=== PATIENT | female | born 1975 | race African-American/Black ===

== ENCOUNTER 2016-08-10 11:21 | Inpatient (IN) | payer OTHER ==
[2016-08-10 11:49] VITALS: BMI 43.2
--- NOTE | 2016-08-10 15:57 | HP ---
CIWA Score - CIWA Score Nausea/Vomitin-Int. Nausea w/Dry Heave (DIARRHEA) Muscle Tremors: 4-Moderate,w/Arms Extend Anxiety: 4-Mod. Anxious/Guarded Agitation: 4-Moderately Restless Paroxysmal Sweats: 1-Minimal Palms Moist Orientation: 0-Oriented Tacttile Disturbances: 3-Moderate Itch/Numb/Burn Auditory Disturbances: 0-None Visual Disturbances: 0-None Headache: 2-Mild CIWA-Ar Total Score: 22 Admission [facility] - HPI Chief Complaint: DETOX TX FOR ALCOHOL DEPENDENCE Allergies/Adverse Reactions: Allergies Allergy/AdvReac Type Severity Reaction Status Date / Time divalproex sodium Allergy Severe Swelling Verified 08/10/16 12:51 [From Depakote] fish derived Allergy Severe Hives Verified 08/10/16 12:51 shellfish derived Allergy Severe Hives Verified 08/10/16 12:51 No Known Drug Allergies Allergy Verified 08/10/16 12:51 peach [[place]] Allergy Swelling Verified 08/10/16 12:51 peaches Allergy Swelling Uncoded 08/10/16 12:51 History of Present Illness: 40 Y/O AA/FEMALE WITH A HX OF ALCOHOL AND COCAINE DEPENDENCE SEEKING DETOX TX. PT ALSO STATES HEROIN DEPENDENCE BUT TOXICOLOGY IS NEGATIVE FOR OPIATES THIS TIME. Exam Limitations: No Limitations - Ebola screening Have you traveled outside of the country in the last 21 days: No Have you had contact with anyone from an Ebola affected area: No Have you been sick,other than usual withdrawal symptoms: No Do you have a fever: No - Review of Systems Constitutional: Chills, Night Sweats, Changes in sleep EENT: reports: Blurred Vision, Tearing, Nose Congestion, Dental Problems Respiratory: reports: Shortness of Breath (HX ASTHMA AND COPD), Wheezing Cardiac: reports: Lightheadedness GI: reports: Diarrhea, Nausea, Vomiting, Abdominal cramping : reports: Frequency Musculoskeletal: reports: Back Pain, Joint Pain, Muscle Pain Integumentary: reports: Bruising (RIGHT HEEL) Neuro: reports: Headache, Unsteady Gait, Dizziness Endocrine: reports: No Symptoms Reported Hematology: reports: Anemia Psychiatric: reports: Orientated x3, Agitated, Anxious, Depressed (HX DEPRESSION ) Other Systems: Reviewed and Negative Patient History - Patient Medical History Hx Anemia: Yes (CURRENTLY ON IRON PILL) Hx Asthma: Yes Hx Chronic Obstructive Pulmonary Disease (COPD): Yes Hx Cardiac Disorders: No Hx Hypertension: No Hx Hypercholesterolemia: No HX Cerebrovascular Accident: No Hx Seizures: No Hx Diabetes: No Hx Gastrointestinal Disorders: No Hx Genitourinary Disorders: No Hx Sexually Transmitted Disorders: No Hx Renal Disease (ESRD): No Hx Thyroid Disease: No Hx Human Immunodeficiency Virus (HIV): No (NEGATIVE HX) Hx Hepatitis C: No Hx Depression: Yes Hx Suicide Attempt: No (DENIES) Hx Schizophrenia: Yes (schizoaffective disorder) - Patient Surgical History Past Surgical History: Yes Hx Neurologic Surgery: No Hx Cataract Extraction: No Hx Cardiac Surgery: No Hx Lung Surgery: No Hx Breast Surgery: No Hx Breast Biopsy: No Hx Abdominal Surgery: No Hx Appendectomy: Yes (IN 1989) Hx Cholecystectomy: No Hx Genitourinary Surgery: No Hx Section: No Hx Orthopedic Surgery: No Anesthesia Reaction: No - PPD History Previous Implant?: Yes Documented Results: Negative w/proof Implanted On Prior [facility] Admission?: Yes Date: 10/30/13 Results: 0 mm PPD to be Administered?: Yes - Reproductive History Patient is a Female of Child Bearing Age (11 -55 yrs old): Yes Last Menstrual Period: 07/20/16 Patient : No - Smoking Cessation Smoking history: Current every day smoker Have you smoked in the past 12 months: Yes Aproximately how many cigarettes per day: 2 Cigars Per Day: 0 Hx Chewing Tobacco Use: No Initiated information on smoking cessation: Yes 'Breaking Loose' booklet given: 08/10/16 - Substance & Tx. History Hx Alcohol Use: Yes (RUM/VODKA) Hx Substance Use: Yes (HEROIN/CRACK/PCP) Substance Use Type: Alcohol, Cocaine, Heroin, Marijuana (PCP) Hx Substance Use Treatment: Yes ([facility]-DETOX/REHAB) - Substances Abused Heroin Route: Inhalation Frequency: Daily Amount used: 10 bags Age of first use: 27 Date of Last Use: 08/10/16 Crack Route: Smoking Frequency: 1-3 times last 30 days Amount used: $200 Age of first use: 27 Date of Last Use: 08/10/16 PCP Route: Smoking Frequency: 1-3 times last 30 days Amount used: $10 Age of first use: 38 Date of Last Use: 08/09/16 Alcohol-rum/vodka Route: Oral Frequency: 3-6 times per week Amount used: 1/2-1 pt. Age of first use: 19 Date of Last Use: 08/10/16 Family Disease History - Family Disease History Family Disease History: Other: Mother (HTN-) Admission Physical Exam [facility] - Vital Signs Vital Signs: Vital Signs - 24 hr 08/10/16 11:47 Temperature 98.8 F Pulse Rate 115 H Respiratory 18 Rate Blood Pressure 140/87 - Physical General Appearance: Yes: Moderate Distress, Obese, Irritable, Anxious HEENTM: Yes: EOMI, Normocephalic, RAFI, Pharynx Normal Respiratory: Yes: Chest Non-Tender, Lungs Clear, Normal Breath Sounds, No Respiratory Distress Neck: Yes: Supple, Trachea in good position Breast: Yes: Breast Exam Deferred Cardiology: Yes: Regular Rhythm, S1, S2, Tachycardia Abdominal: Yes: Non Tender, Soft Genitourinary: Yes: Other (N/C) Musculoskeletal: Yes: full range of Motion, Gait Steady Extremities: Yes: Normal Range of Motion, Non-Tender Neurological: Yes: director media II-XII NML intact, Fully Oriented, Alert Integumentary: Yes: Dry, Warm Lymphatic: Yes: Within Normal Limits - Diagnostic (1) Asthma Status: Chronic (2) Anemia Status: Suspected Qualifiers: Iron deficiency anemia type: unspecified iron deficiency (3) Nicotine dependence Status: Acute Qualifiers: Nicotine product type: cigarettes Substance use status: uncomplicated Qualified Code(s): F17.210 - Nicotine dependence, cigarettes, uncomplicated (4) Alcohol dependence with uncomplicated withdrawal Status: Acute (5) PCP dependence Status: Acute (6) Cocaine dependence, uncomplicated Status: Acute (7) COPD (chronic obstructive pulmonary disease) Status: Chronic Qualifiers: COPD type: unspecified COPD Qualified Code(s): J44.9 - Chronic obstructive pulmonary disease, unspecified Cleared for Admission [facility] - Detox or Rehab S Level of Care: Medically Managed Detox Regimen/Protocol: Librium [facility] Breath Alcohol Content Breath Alcohol Content: 0 Urine Pregancy Test - Result Urine Test Results: Negative- NO Line Present Urine Drug Screen - Results Drug Screen Negative: No Urine Drug Screen Results: RUDY-Cocaine, PCP-Phencyclidine
[2016-08-10] MEDS ORDERED: MENTHOL/PHENOL 1 EACH UD MM PRN (16:13)
[2016-08-10] MEDS ORDERED: hydrOXYzine PAMOATE 25 MG CAPSULE (FP) PO PRN (16:13)
[2016-08-10] MEDS ORDERED: MAGNESIUM CITRATE 300 ML BOTTLE PO PRN (16:13)
[2016-08-10] MEDS ORDERED: guaiFENesin/D-METHORPHAN HB 10 ML UNIT-DOSE CUPS PO PRN (16:13)
[2016-08-10] MEDS ORDERED: LOPERAMIDE HCL 2 MG CAPSULE PO PRN (16:13)
[2016-08-10] MEDS ORDERED: P-EPHED 60MG/TRIPROLIDI 2.5MG TABLET PO PRN (16:13)
[2016-08-10] MEDS ORDERED: MAG HYDROX/AL HYDROX/SIMETH 30 ML UNIT-DOSE CUP PO PRN (16:13)
[2016-08-10] MEDS ORDERED: ACETAMINOPHEN 325 MG TABLET (FP) PO PRN (16:13)
[2016-08-10] MEDS ORDERED: chlordiazePOXIDE HCL 25 MG CAPSULE PO PRN (16:13)
[2016-08-10] MEDS ORDERED: MAGNESIUM HYDROX 2400MG/30ML ORAL SUSPENSION 30 ML CUP PO PRN (16:13)
[2016-08-10] MEDS ORDERED: ALBUTEROL SO4 6.7 GM HFA INHALER IH PRN (16:15)
[2016-08-10] MEDS: NICOTINE 14 MG/24 HOURS TOPICAL PATCH TD SCH (17:50)
[2016-08-10] MEDS: chlordiazePOXIDE HCL 25 MG CAPSULE PO SCH ×2 (17:50→23:07)
[2016-08-10] MEDS: IBUPROFEN 400 MG TABLET (FP) PO PRN (17:53)
[2016-08-10 21:52] LABS: URINE APPEARANCE CLOUDY; URINE BILIRUBIN NEGATIVE (NEGATIVE); URINE COLOR YELLOW; URINE GLUCOSE (UA) NEGATIVE (NEGATIVE); URINE KETONE 1+ (NEGATIVE); URINE LEUK ESTERASE NEGATIVE (NEGATIVE); URINE NITRITE NEGATIVE (NEGATIVE); URINE UROBILINOGEN NEGATIVE E.U./dl (0.2-1.0)
[2016-08-10 21:55] LABS: URINE BLOOD 2+ (NEGATIVE); URINE PROTEIN 1+ (NEGATIVE)
[2016-08-10 21:58] LABS: URINE BACTERIA RARE /hpf (NONE SEEN); URINE MUCUS MODERATE; URINE RBC 4 /hpf (0-3); URINE WBC 8 /hpf (3-5)
[2016-08-10] MEDS ORDERED: diphenhydrAMINE HCL 50 MG CAPSULE PO PRN (22:00)
[2016-08-10] MEDS: MONTELUKAST NA 10 MG TABLET PO SCH (23:06)
[2016-08-10] MEDS: THIAMINE HCL 100 MG TABLET (FP) PO SCH (23:07)
[2016-08-11] MEDS: chlordiazePOXIDE HCL 25 MG CAPSULE PO SCH ×4 (06:21→22:40)
--- NOTE | 2016-08-11 08:30 | CONSULT ---
[facility] Psychiatric Consult - Data Date of interview: 08/11/16 Admission source: [facility] Identifying data: This is 40 years old female with psychiatric hospitalization history, intoxicated with Alcohol, Crack, PCP, Heroin, Nicotine Substance Abuse History: Smoking history: Current every day smoker. Have you smoked in the past 12 months: Yes. Aproximately how many cigarettes per day: 2. Cigars Per Day: 0. Hx Chewing Tobacco Use: No. Initiated information on smoking cessation: Yes. 'Breaking Loose' booklet given: 08/10/16. - Substance & Tx. History. Hx Alcohol Use: Yes (RUM/VODKA). Hx Substance Use: Yes (HEROIN/ CRACK/PCP). Substance Use Type: Alcohol, Cocaine, Heroin, Marijuana (PCP). Hx Substance Use Treatment: Yes ([facility]-DETOX/REHAB). - Substances Abused. Heroin. Route: Inhalation. Frequency: Daily. Amount used: 10 bags. Age of first use: 27. Date of Last Use: 08/10/16. Crack. Route: Smoking. Frequency: 1-3 times last 30 days. Amount used: $200. Age of first use: 27. Date of Last Use: 08/10/16. PCP. Route: Smoking. Frequency: 1-3 times last 30 days. Amount used: $10. Age of first use: 38. Date of Last Use: 08/09. Alcohol-rum/vodka. Route: Oral. Frequency: 3-6 times per week. Amount used: 1/2-1 pt. Age of first use: 19. Date of Last Use: 08/10/16 Medical History: Asthma, COPD, Anemia history, Syncope history, Psychiatric History: Patient reports hiswtory of anxiety and depression, OCD, reports psychiatric admission on about 5 years ago for safety, denies suicidal history, reports currently taking : Buspar 10mg po bid. Gabapentin 300mg po tid Physical/Sexual Abuse/Trauma History: Denies Additional Comment: Buspar 10mg po bid. Gabapentin 300mg po tid Mental Status Exam - Mental Status Exam Alert and Oriented to: Person Cognitive Function: Fair Patient Appearance: Well Groomed Mood: Sad Affect: Mood Congruent Patient Behavior: Cooperative Speech Pattern: Appropriate Voice Loudness: Mildly Soft/Quiet Thought Process: Goal Oriented Thought Disorder: Being Controlled Hallucinations: Denies Suicidal Ideation: Denies Homicidal Ideation: Denies Insight/Judgement: Fair Sleep: Difficulty falling asleep Appetite: Fair Muscle strength/Tone: Normal Gait/Station: Normal Additional Comments: Buspar 10mg po bid. Gabapentin 300mg po tid Psychiatric Findings - Problem List ([employer] 1, 2,3) (1) Alcohol dependence with uncomplicated withdrawal Current Visit: Yes Status: Acute (2) Cocaine dependence, uncomplicated Current Visit: Yes Status: Acute (3) Nicotine dependence Current Visit: Yes Status: Acute Qualifiers: Nicotine product type: cigarettes Substance use status: uncomplicated Qualified Code(s): F17.210 - Nicotine dependence, cigarettes, uncomplicated (4) PCP dependence Current Visit: Yes Status: Acute (5) Alcohol dependence Current Visit: No Status: Acute (6) Drug-induced mood disorder Current Visit: Yes Status: Acute (7) History of OCD (obsessive compulsive disorder) Current Visit: Yes Status: Acute - Initial Treatment Plan Initial Treatment Plan: Buspar 10mg po bid. Gabapentin 300mg po tid
[2016-08-11 09:33] LABS: MCH 25.1 pg (25.7-33.7); MCHC 31.2 g/dl (32.0-36.0); MEAN CELL VOLUME 80.5 fl (80-96); MEAN PLT VOLUME 9.3 fl (7.5-11.1); PLATELET COUNT 265 K/MM3 (134-434); RDW 15.9 % (11.6-15.6); WHITE BLOOD COUNT 10.1 K/mm3 (4.0-10.0)
[2016-08-11 09:47] LABS: ANION GAP 10 (8-16); CALCIUM 9.1 mg/dL (8.5-10.1); CO2 26 mmol/L (21-32); GLUCOSE,RANDOM 109 mg/dL (74-106)
[2016-08-11 09:51] LABS: ALK PHOS 94 U/L (45-117); BILIRUBIN,TOTAL 0.2 mg/dL (0.2-1.0); CREATININE 0.9 mg/dL (0.55-1.02); SGOT/AST 43 U/L (15-37); SGPT/ALT 30 U/L (12-78); TOT PROT 7.9 g/dl (6.4-8.2)
--- NOTE | 2016-08-11 10:39 | EKG ---
Test Reason : Blood Pressure : / mmHG Vent. Rate : 094 BPM Atrial Rate : 094 BPM P-R Int : 148 ms QRS Dur : 082 ms QT Int : 404 ms P-R-T Axes : 073 058 069 degrees QTc Int : 505 ms NORMAL SINUS RHYTHM PROLONGED QT ABNORMAL ECG NO PREVIOUS ECGS AVAILABLE Confirmed by MEGA OCASIO, FLORA ([id number]) on 08/11/2016 10:38:53 AM Referred By: Confirmed By:FLORA AYOUB MD
[2016-08-11] MEDS: PRENATAL VITAMINS W/ FOLIC ACID TABLET (FP) PO SCH (11:15)
[2016-08-11] MEDS: NICOTINE POLACRILEX 2 MG GUM BUC PRN (11:18)
[2016-08-11] MEDS: IBUPROFEN 400 MG TABLET (FP) PO PRN (11:18)
[2016-08-11] MEDS: NICOTINE 14 MG/24 HOURS TOPICAL PATCH TD SCH (11:20)
[2016-08-11 12:09] LABS: HIV 1 & 2 AB NEGATIVE; HIV 1 AGp24 NEGATIVE
[2016-08-11] MEDS ORDERED: IBUPROFEN 600 MG TABLET (FP) PO PRN (13:49)
--- NOTE | 2016-08-11 13:49 | PN ---
[facility] CIWA - CIWA Score Nausea/Vomitin-No Nausea/No Vomiting Muscle Tremors: 4-Moderate,w/Arms Extend Anxiety: 4-Mod. Anxious/Guarded Agitation: 4-Moderately Restless Paroxysmal Sweats: 3 Orientation: 0-Oriented Tacttile Disturbances: 0-None Auditory Disturbances: 0-None Visual Disturbances: 0-None Headache: 0-None Present CIWA-Ar Total Score: 15 [facility] Progress Note (SOAP) Subjective: coughing up phlem with blood tinged sweats agitation irritable body aches Objective: 08/11/16 13:47 Vital Signs Temperature 99.0 F 08/11/16 10:17 Pulse Rate 101 H 08/11/16 10:17 Respiratory Rate 16 08/11/16 10:17 Blood Pressure 101/58 08/11/16 10:17 O2 Sat by Pulse Oximetry (%) Laboratory Tests 08/10/16 08/10/16 08/11/16 06:30 20:30 05:30 WBC 10.1 H RBC 5.08 Hgb 12.7 Hct 40.9 MCV 80.5 MCHC 31.2 L RDW 15.9 H Plt Count 265 MPV 9.3 Sodium Potassium Chloride Carbon Dioxide Anion Gap BUN Creatinine Creat Clearance w eGFR Random Glucose Calcium Total Bilirubin AST ALT Alkaline Phosphatase Total Protein Albumin Urine Color Yellow Urine Appearance Cloudy Urine pH 5.0 Ur Specific [place] 1.015 Urine Protein 1+ H Urine Glucose (UA) Negative Urine Ketones 1+ H Urine Blood 2+ H Urine Nitrite Negative Urine Bilirubin Negative Urine Urobilinogen Negative Ur Leukocyte Esterase Negative Urine RBC 4 Urine WBC 8 Ur Epithelial Cells Few Urine Bacteria Rare Urine Mucus Moderate HIV 1&2 Antibody Screen Negative HIV P24 Antigen Negative 08/11/16 05:30 WBC RBC Hgb Hct MCV MCHC RDW Plt Count MPV Sodium 139 Potassium 3.8 Chloride 103 Carbon Dioxide 26 Anion Gap 10 BUN 8 Creatinine 0.9 Creat Clearance w eGFR > 60 Random Glucose 109 H Calcium 9.1 Total Bilirubin 0.2 D AST 43 H D ALT 30 D Alkaline Phosphatase 94 D Total Protein 7.9 D Albumin 4.0 Urine Color Urine Appearance Urine pH Ur Specific [place] Urine Protein Urine Glucose (UA) Urine Ketones Urine Blood Urine Nitrite Urine Bilirubin Urine Urobilinogen Ur Leukocyte Esterase Urine RBC Urine WBC Ur Epithelial Cells Urine Bacteria Urine Mucus HIV 1&2 Antibody Screen HIV P24 Antigen chest x-ray ordered; results show lungs to be unremarkable no s/s of any abnormality awake/alert ambulating no acute distress no SOB no respiratory distress, Assessment: 08/11/16 13:48 withdrawal sx Plan: continue detox increase fluids duoneb prn robutussin cough medicine ordered throat lozenges prn
[2016-08-11] MEDS ORDERED: ALBUTEROL SO4 2.5/IPRATROPIUM 0.5 INH SOL 3 ML VIAL.NEB. NEB PRN (13:51)
[2016-08-11] MEDS ORDERED: ALBUTEROL SO4 2.5/IPRATROPIUM 0.5 INH SOL 3 ML VIAL.NEB. NEB ONE (14:08)
[2016-08-11] MEDS: GABAPENTIN 300 MG CAPSULE (FP) PO SCH ×2 (15:20→22:40)
[2016-08-11] MEDS: THIAMINE HCL 100 MG TABLET (FP) PO SCH (22:40)
[2016-08-11] MEDS: MONTELUKAST NA 10 MG TABLET PO SCH (22:40)
[2016-08-12] MEDS: GABAPENTIN 300 MG CAPSULE (FP) PO SCH ×3 (07:26→23:43)
[2016-08-12] MEDS: chlordiazePOXIDE HCL 25 MG CAPSULE PO SCH ×2 (07:31→10:55)
[2016-08-12] MEDS: NICOTINE 14 MG/24 HOURS TOPICAL PATCH TD SCH (10:51)
[2016-08-12] MEDS: PRENATAL VITAMINS W/ FOLIC ACID TABLET (FP) PO SCH (10:52)
--- NOTE | 2016-08-12 11:28 | PN ---
[facility] CIWA - CIWA Score Nausea/Vomitin-No Nausea/No Vomiting Muscle Tremors: 4-Moderate,w/Arms Extend Anxiety: 4-Mod. Anxious/Guarded Agitation: 4-Moderately Restless Paroxysmal Sweats: 3 Orientation: 0-Oriented Tacttile Disturbances: 0-None Auditory Disturbances: 0-None Visual Disturbances: 0-None Headache: 0-None Present CIWA-Ar Total Score: 15 [facility] Progress Note (SOAP) Subjective: irritable crying sweats agitation Objective: 08/12/16 11:25 Vital Signs Temperature 98.2 F 08/12/16 10:34 Pulse Rate 103 H 08/12/16 10:34 Respiratory Rate 20 08/12/16 10:34 Blood Pressure 125/70 08/12/16 10:34 O2 Sat by Pulse Oximetry (%) Laboratory Tests 08/10/16 08/10/16 08/11/16 06:30 20:30 05:30 WBC 10.1 H RBC 5.08 Hgb 12.7 Hct 40.9 MCV 80.5 MCHC 31.2 L RDW 15.9 H Plt Count 265 MPV 9.3 Sodium Potassium Chloride Carbon Dioxide Anion Gap BUN Creatinine Creat Clearance w eGFR Random Glucose Calcium Total Bilirubin AST ALT Alkaline Phosphatase Total Protein Albumin Urine Color Yellow Urine Appearance Cloudy Urine pH 5.0 Ur Specific [place] 1.015 Urine Protein 1+ H Urine Glucose (UA) Negative Urine Ketones 1+ H Urine Blood 2+ H Urine Nitrite Negative Urine Bilirubin Negative Urine Urobilinogen Negative Ur Leukocyte Esterase Negative Urine RBC 4 Urine WBC 8 Ur Epithelial Cells Few Urine Bacteria Rare Urine Mucus Moderate RPR Titer HIV 1&2 Antibody Screen Negative HIV P24 Antigen Negative 08/11/16 08/11/16 05:30 05:30 WBC RBC Hgb Hct MCV MCHC RDW Plt Count MPV Sodium 139 Potassium 3.8 Chloride 103 Carbon Dioxide 26 Anion Gap 10 BUN 8 Creatinine 0.9 Creat Clearance w eGFR > 60 Random Glucose 109 H Calcium 9.1 Total Bilirubin 0.2 D AST 43 H D ALT 30 D Alkaline Phosphatase 94 D Total Protein 7.9 D Albumin 4.0 Urine Color Urine Appearance Urine pH Ur Specific [place] Urine Protein Urine Glucose (UA) Urine Ketones Urine Blood Urine Nitrite Urine Bilirubin Urine Urobilinogen Ur Leukocyte Esterase Urine RBC Urine WBC Ur Epithelial Cells Urine Bacteria Urine Mucus RPR Titer Nonreactive HIV 1&2 Antibody Screen HIV P24 Antigen awake/alert ambulating pt was crying uncontrollably psych ordered Assessment: 08/12/16 11:26 withdrawal sx Plan: continue detox increase fluids psych ordered
[2016-08-12] MEDS: cloNIDine HCL 0.1 MG TABLET PO SCH ×2 (12:03→23:42)
--- NOTE | 2016-08-12 12:40 | PN ---
Psychiatric Progress Note Vital Signs: Vital Signs Period Temp Pulse Resp BP Sys/Begum Pulse Ox Last 24 Hr 97.2 F-98.2 F 77-103 16-20 106-125/61-70 Date of Session: 08/12/16 Chief Complaint:: Follow up visit HPI: Case of a 40 y/o AA female seeking detox treatment on for alcohol, heroin,phencyclidine and nicotine dependence.Psychiatric consultation is sought in view of escalating anxiety symptoms,depressed/angry mood,crying spells and request for discharge. ROS: Unremarkable.No somatic complaints offered.No evidence of physical distress.Patient is cognitively intact.Normal vitals. Current Medications: Active Medications Generic Name Dose Route Start Last Admin Trade Name Freq PRN Reason Stop Dose Admin Acetaminophen 650 mg 08/10/16 16:13 Tylenol - PO Q4H PRN FEVER OR PAIN Al Hydroxide/Mg Hydroxide 30 ml 08/10/16 16:13 Mylanta Oral Suspension - PO Q6H PRN DYSPEPSIA Albuterol Sulfate 0 puff 08/10/16 16:15 Ventolin Hfa Inhaler - IH Q4H PRN ASTHMA Albuterol/Ipratropium 1 amp 08/11/16 13:51 08/12/16 10:55 Duoneb - NEB 1 amp Q4H PRN Administration SHORTNESS OF BREATH Chlordiazepoxide HCl 10 mg 08/13/16 17:00 Librium - PO 08/14/16 11:01 [id number] ALEXX Chlordiazepoxide HCl 25 mg 08/10/16 16:13 08/12/16 12:28 Librium - PO 08/13/16 16:12 25 mg Q4H PRN Administration WITHDRAWAL(CONT SUBST) Chlordiazepoxide HCl 15 mg 08/12/16 17:00 Librium - PO 08/13/16 11:01 [id number] ALEXX Clonidine 0.1 mg 08/12/16 11:30 08/12/16 12:03 Catapres - PO 0.1 mg BID ALEXX Administration Diphenhydramine HCl 50 mg 08/10/16 22:00 Benadryl - PO HSMR1 PRN INSOMNIA Eucalyptus/Menthol/Phenol/Sorbitol 1 each 08/10/16 16:13 Cepastat Lozenge - MM Q4H PRN SORE THROAT Gabapentin 300 mg 08/11/16 14:00 08/12/16 07:26 Neurontin - PO 300 mg TID ALEXX Administration Guaifenesin 10 ml 08/10/16 16:13 08/12/16 12:26 Robitussin Dm - PO 10 ml Q6H PRN Administration COUGH Hydroxyzine Pamoate 25 mg 08/10/16 16:13 08/12/16 12:31 Vistaril - PO 25 mg Q4H PRN Administration AGITATION Ibuprofen 600 mg 08/11/16 13:49 Motrin - PO Q6H PRN SEVERE PAIN Loperamide HCl 4 mg 08/10/16 16:13 Imodium - PO Q6H PRN DIARRHEA Magnesium Citrate 300 ml 08/10/16 16:13 Citroma - PO Q48H PRN CONSTIPATION Magnesium Hydroxide 30 ml 08/10/16 16:13 Milk Of Magnesia - PO DAILY PRN CONSTIPATION Montelukast Sodium 10 mg 08/10/16 22:00 08/11/16 22:40 Singulair - PO 10 mg HS ALEXX Administration Nicotine 14 mg 08/10/16 16:15 08/12/16 10:51 Nicoderm Patch - TD Not Given DAILY ALEXX Nicotine Polacrilex 2 mg 08/10/16 16:13 08/11/16 11:18 Nicorette Gum - BUC 2 mg Q2H PRN Administration NICOTINE REPLACEMENT RX Multivit/Folic Acid/Iron 1 tab 08/11/16 10:00 08/12/16 10:52 Vitamins (Sjr) - PO Not Given DAILY ALEXX Pseudoephedrine/Triprolidine 1 combo 08/10/16 16:13 Actifed - PO TID PRN NASAL CONGESTION Thiamine HCl 100 mg 08/10/16 22:00 08/11/16 22:40 Vitamin B1 - PO 100 mg HS ALEXX Administration Medication(s) Change(s): Vistaril is offered for alleviation of anxiety.Patient refused." I have been on so many medications all my life.Now what I need is to see my and get custody of my one year-old daughter." Vistaril 25 mg po q 4 hrs prn is available to address acute anxiety symptoms.Side effects/benefits discussed with the patient. Current Side Effect: No Lab tests ordered: No Lab tests reviewed: Yes Provider note:: Asked to see this patient (already evaluated by psychiatrist,Dr Dumont,on 08/11/16) because of emotional lability,anxiety,dysphoric mood, restlessness and acting out behavior.Chart reviewed.Case presented by TESFAYE Nolan.Attending psychiatrist's note is appreciated.Patient is interviewed.She reports feeling upset over her current situation (marital discord,frequent arguments with spouse,recent involvement with [facility],separation from ).Patient informs that her one year-old stepdaughter has been taken away three weeks ago.Ms Carter is unhappy about this separation and she indicates her intention to petition for child custody.Patient remains calm and appropriate during the interview.She shows no evidence of psychosis or alla.Patient is allowed to contact spouse via telephone.She showed a natural ability to negotiate,revisit her own weaknesses and make amends.Conversation is witnessed by this science writer.No acting out.Ms Carter informs spouse of her scheduled discharge on 08/14/16 and she is making arrangements for a family reunion.Mental status remains stable. Total face to face time:: 90 Mental Status Exam - Mental Status Exam Alert and Oriented to: Time, Place, Person Cognitive Function: Good Patient Appearance: Well Groomed (short stature,obese) Mood: Nervous, Anxious, Hopeful Affect: Mood Congruent Patient Behavior: Talkative, Cooperative Speech Pattern: Clear Voice Loudness: Normal Thought Process: Goal Oriented Thought Disorder: Not Present Hallucinations: Denies Suicidal Ideation: Denies Homicidal Ideation: Denies Insight/Judgement: Fair Sleep: Fair Appetite: Good Muscle strength/Tone: Normal Gait/Station: Normal Psychiatric Treatment Plan - Problem List (1) Stress disorder, acute Current Visit: Yes (2) Alcohol dependence with uncomplicated withdrawal Current Visit: Yes (3) Cocaine dependence, uncomplicated Current Visit: Yes (4) Drug-induced mood disorder Current Visit: Yes (5) Nicotine dependence Current Visit: Yes Qualifiers: Nicotine product type: cigarettes Substance use status: uncomplicated Qualified Code(s): F17.210 - Nicotine dependence, cigarettes, uncomplicated (6) PCP dependence Current Visit: Yes (7) History of OCD (obsessive compulsive disorder) Current Visit: Yes (8) Asthma Current Visit: Yes (9) COPD (chronic obstructive pulmonary disease) Current Visit: Yes Qualifiers: COPD type: unspecified COPD Qualified Code(s): J44.9 - Chronic obstructive pulmonary disease, unspecified (10) Anemia Current Visit: Yes
[2016-08-12] MEDS: chlordiazePOXIDE 5 MG CAPSULE PO SCH ×2 (20:15→23:42)
[2016-08-12] MEDS: MONTELUKAST NA 10 MG TABLET PO SCH (23:43)
[2016-08-12] MEDS: THIAMINE HCL 100 MG TABLET (FP) PO SCH (23:43)
[2016-08-13] MEDS: chlordiazePOXIDE 5 MG CAPSULE PO SCH ×2 (06:20→10:01)
[2016-08-13] MEDS: GABAPENTIN 300 MG CAPSULE (FP) PO SCH ×2 (06:20→13:47)
[2016-08-13] MEDS: PRENATAL VITAMINS W/ FOLIC ACID TABLET (FP) PO SCH (10:00)
[2016-08-13] MEDS: cloNIDine HCL 0.1 MG TABLET PO SCH (10:00)
[2016-08-13] MEDS: NICOTINE POLACRILEX 2 MG GUM BUC PRN (10:02)
[2016-08-13] MEDS: NICOTINE 14 MG/24 HOURS TOPICAL PATCH TD SCH (10:03)
--- NOTE | 2016-08-13 12:08 | PN ---
S Progress Note (SOAP) Subjective: ALERT,IRRITABLE,ANXIOUS,INTERRUPTED SLEEP,TREMOR Objective: 08/13/16 12:07 Vital Signs Temperature 97.5 F L 08/13/16 09:42 Pulse Rate 85 08/13/16 09:42 Respiratory Rate 18 08/13/16 09:42 Blood Pressure 108/61 08/13/16 09:42 O2 Sat by Pulse Oximetry (%) Assessment: 08/13/16 12:07 WITHDRAWAL SYMPTOM Plan: CONTINUE DETOX,DISCHARGE IN AM
[2016-08-13] MEDS ORDERED: chlordiazePOXIDE HCL 10 MG CAPSULE PO SCH (17:00)
[2016-08-13 17:52] VITALS: BP 107/44; PULSE 82; TEMP 99
--- NOTE | 2016-08-13 18:40 | DS ---
[facility] Detox Discharge Summary Admission Date: 08/10/16 Discharge Date: 08/13/16 - History Present History: Alcohol Dependence, Cocaine Dependence Pertinent Past History: COPD Asthma - Physical Exam Results Vital Signs: Vital Signs Temperature 99.0 F 08/13/16 17:52 Pulse Rate 82 08/13/16 17:52 Respiratory Rate 16 08/13/16 17:52 Blood Pressure 107/44 08/13/16 17:52 O2 Sat by Pulse Oximetry (%) Pertinent Admission Physical Exam Findings: withdrawal sx. Laboratory Last Values WBC 10.1 K/mm3 (4.0-10.0) H 08/11/16 05:30 RBC 5.08 M/mm3 (3.60-5.2) 08/11/16 05:30 Hgb 12.7 GM/dL (10.7-15.3) 08/11/16 05:30 Hct 40.9 % (32.4-45.2) 08/11/16 05:30 MCV 80.5 fl (80-96) 08/11/16 05:30 MCHC 31.2 g/dl (32.0-36.0) L 08/11/16 05:30 RDW 15.9 % (11.6-15.6) H 08/11/16 05:30 Plt Count 265 K/MM3 (134-434) 08/11/16 05:30 MPV 9.3 fl (7.5-11.1) 08/11/16 05:30 Sodium 139 mmol/L (136-145) 08/11/16 05:30 Potassium 3.8 mmol/L (3.5-5.1) 08/11/16 05:30 Chloride 103 mmol/L (98-107) 08/11/16 05:30 Carbon Dioxide 26 mmol/L (21-32) 08/11/16 05:30 Anion Gap 10 (8-16) 08/11/16 05:30 BUN 8 mg/dL (7-18) 08/11/16 05:30 Creatinine 0.9 mg/dL (0.55-1.02) 08/11/16 05:30 Creat Clearance w eGFR > 60 (>60) 08/11/16 05:30 Random Glucose 109 mg/dL (74-106) H 08/11/16 05:30 Calcium 9.1 mg/dL (8.5-10.1) 08/11/16 05:30 Total Bilirubin 0.2 mg/dL (0.2-1.0) D 08/11/16 05:30 AST 43 U/L (15-37) H D 08/11/16 05:30 ALT 30 U/L (12-78) D 08/11/16 05:30 Alkaline Phosphatase 94 U/L (45-117) D 08/11/16 05:30 Total Protein 7.9 g/dl (6.4-8.2) D 08/11/16 05:30 Albumin 4.0 g/dl (3.4-5.0) 08/11/16 05:30 Urine Color Yellow 08/10/16 20:30 Urine Appearance Cloudy 08/10/16 20:30 Urine pH 5.0 (5.0-8.0) 08/10/16 20:30 Ur Specific [place] 1.015 (1.001-1.035) 08/10/16 20:30 Urine Protein 1+ (NEGATIVE) H 08/10/16 20:30 Urine Glucose (UA) Negative (NEGATIVE) 08/10/16 20:30 Urine Ketones 1+ (NEGATIVE) H 08/10/16 20:30 Urine Blood 2+ (NEGATIVE) H 08/10/16 20:30 Urine Nitrite Negative (NEGATIVE) 08/10/16 20:30 Urine Bilirubin Negative (NEGATIVE) 08/10/16 20:30 Urine Urobilinogen Negative E.U./dl (0.2-1.0) 08/10/16 20:30 Ur Leukocyte Esterase Negative (NEGATIVE) 08/10/16 20:30 Urine RBC 4 /hpf (0-3) 08/10/16 20:30 Urine WBC 8 /hpf (3-5) 08/10/16 20:30 Ur Epithelial Cells Few /hpf (FEW) 08/10/16 20:30 Urine Bacteria Rare /hpf (NONE SEEN) 08/10/16 20:30 Urine Mucus Moderate 08/10/16 20:30 RPR Titer Nonreactive (NONREACTIVE) 08/11/16 05:30 HIV 1&2 Antibody Screen Negative 08/10/16 06:30 HIV P24 Antigen Negative 08/10/16 06:30 labs noted - Treatment Hospital Course: Detox Protocol Followed, Detoxed Safely, Responded well, Discharged Condition Good, Rehab Referral Accepted - Medication Discharge Medications: Ambulatory Orders Albuterol Sulfate Inhaler - [Ventolin Hfa *Inhaler*] 2 inh IH Q4H PRN 08/27/12 Montelukast Na [Singulair] 10 mg PO HS 08/27/12 Gabapentin [Neurontin] 300 mg PO TID 06/14/13 Buspirone HCl [Buspar -] 10 mg PO BID 08/10/16 Ibuprofen [Motrin -] 400 mg PO BID PRN 08/10/16 - Diagnosis (1) Alcohol dependence with uncomplicated withdrawal Current Visit: Yes Status: Acute (2) Cocaine dependence, uncomplicated Current Visit: Yes Status: Acute (3) Drug-induced mood disorder Current Visit: Yes Status: Acute (4) History of OCD (obsessive compulsive disorder) Current Visit: Yes Status: Acute (5) Nicotine dependence Current Visit: Yes Status: Acute Qualifiers: Nicotine product type: cigarettes Substance use status: uncomplicated Qualified Code(s): F17.210 - Nicotine dependence, cigarettes, uncomplicated (6) Asthma Current Visit: Yes Status: Chronic (7) COPD (chronic obstructive pulmonary disease) Current Visit: Yes Status: Chronic Qualifiers: COPD type: unspecified COPD Qualified Code(s): J44.9 - Chronic obstructive pulmonary disease, unspecified - AMA Did Patient Leave Against Medical Advice: No
== END 2016-08-13 18:10 | disposition home or self-care (01) | DRG 774 ==
LOC: YASAS 11:21 → Y6N 14:37
PROVIDERS: ADMIT Internal Medicine; ATTEND Internal Medicine
PROC: HZ2ZZZZ Detoxification Services for Substance Abuse Treatment (ICD-10-PCS; principal; 2016-08-13)
DX: F16.20 Hallucinogen dependence, uncomplicated (principal); F14.20 Cocaine dependence, uncomplicated; F17.210 Nicotine dependence, cigarettes, uncomplicated; F19.24 Other psychoactive substance dependence with psychoactive substance-induced mood disorder; F42.9 Obsessive-compulsive disorder, unspecified; J44.9 Chronic obstructive pulmonary disease, unspecified; J45.909 Unspecified asthma, uncomplicated
CPT/HCPCS: 36415; 71020-TC; 80053; 81003; 81015; 85027; 86593; 87389; 93005; 93010; 94640

== ENCOUNTER 2018-02-05 16:58 | Inpatient (IN) | payer OTHER ==
[2018-02-05 18:26] VITALS: BMI 34.1
--- NOTE | 2018-02-05 21:02 | HP ---
CIWA Score - CIWA Score Nausea/Vomitin Muscle Tremors: 3 Anxiety: 3 Agitation: 3 Paroxysmal Sweats: 2 Orientation: 1-Uncertain about Date (no distress) Tacttile Disturbances: 1-Very Mild Itch/Numbness Auditory Disturbances: 0-None Visual Disturbances: 0-None Headache: 2-Mild CIWA-Ar Total Score: 18 Admission ROS S - HPI Chief Complaint: alcohol withdrawal symptoms Allergies/Adverse Reactions: Allergies Allergy/AdvReac Type Severity Reaction Status Date / Time divalproex sodium Allergy Severe Swelling Verified 02/05/18 20:37 [From Depakote] fish derived Allergy Severe Hives Verified 02/05/18 20:37 shellfish derived Allergy Severe Hives Verified 02/05/18 20:37 No Known Drug Allergies Allergy Verified 02/05/18 20:37 peach [[place]] Allergy Swelling Verified 02/05/18 20:37 peaches Allergy Swelling Uncoded 08/10/16 12:51 History of Present Illness: 42 yo female with hx of heroin, cocaine and alcohol dependence is here seeking. Reports suffered a fall and overdosed 36 hours ago on heroin and was treated at [facility]. PMHX: COPD, RA, Anemia, anxiety. Denies suicidal / homicidal ideation or suicide attempt . Longest period of sobriety 2 years, reports recently relapsed 02/01/18. Reports hx of alcohol related seizures. Exam Limitations: No Limitations - Ebola screening Have you traveled outside of the country in the last 21 days: No Have you had contact with anyone from an Ebola affected area: No Have you been sick,other than usual withdrawal symptoms: No Do you have a fever: No - Review of Systems Constitutional: Diaphoresis, Changes in sleep, Unintentional Wgt. Loss (17 lbs) EENT: reports: Blurred Vision (uses glasses) Respiratory: reports: See HPI, SOB with Exertion Cardiac: reports: Other (chest tightness) GI: reports: Constipated, Poor Appetite, Poor Fluid Intake, Vomiting : reports: No Symptoms Reported Musculoskeletal: reports: Back Pain, Joint Pain Integumentary: reports: No Symptoms Reported Neuro: reports: See HPI Endocrine: reports: Increased Thirst Hematology: reports: No Symptoms Reported Psychiatric: reports: Mood/Affect Appropiate, Orientated x3, Anxious Other Systems: Reviewed and Negative Patient History - Patient Medical History Hx Anemia: Yes (CURRENTLY ON IRON PILL) Hx Asthma: Yes Hx Chronic Obstructive Pulmonary Disease (COPD): Yes Hx Cancer: No Hx Cardiac Disorders: Yes (heart murmur) Hx Congestive Heart Failure: No Hx Hypertension: No Hx Hypercholesterolemia: No Hx Pacemaker: No HX Cerebrovascular Accident: No Hx Seizures: Yes (2016) Hx Dementia: No Hx Diabetes: No Hx Gastrointestinal Disorders: No Hx Liver Disease: No Hx Genitourinary Disorders: No Hx Sexually Transmitted Disorders: No Hx Renal Disease (ESRD): No Hx Thyroid Disease: No Hx Human Immunodeficiency Virus (HIV): No (NEGATIVE HX) Hx Hepatitis C: No Hx Depression: Yes Hx Suicide Attempt: No Hx Bipolar Disorder: No Hx Schizophrenia: No Other Medical History: hx [place] Palsy - Patient Surgical History Past Surgical History: Yes Hx Neurologic Surgery: No Hx Cataract Extraction: No Hx Cardiac Surgery: No Hx Lung Surgery: No Hx Breast Surgery: No Hx Breast Biopsy: No Hx Abdominal Surgery: No Hx Appendectomy: Yes (IN 1989) Hx Cholecystectomy: No Hx Genitourinary Surgery: No Hx Section: No Hx Orthopedic Surgery: No Anesthesia Reaction: No - PPD History Previous Implant?: No Documented Results: Negative w/proof Date: 10/30/13 Results: 0 mm PPD to be Administered?: Yes - Reproductive History Patient is a Female of Child Bearing Age (11 -55 yrs old): Yes (post menopause ) Last Menstrual Period: 07/03/13 Patient : No - Smoking Cessation Smoking history: Current every day smoker Have you smoked in the past 12 months: Yes Aproximately how many cigarettes per day: 2 Cigars Per Day: 0 Hx Chewing Tobacco Use: No Initiated information on smoking cessation: Yes 'Breaking Loose' booklet given: 02/05/18 - Substance & Tx. History Hx Alcohol Use: Yes Hx Substance Use: Yes Substance Use Type: Alcohol, Cocaine, Heroin Hx Substance Use Treatment: Yes (2016) - Substances Abused Heroin Route: Inhalation Frequency: Daily Amount used: 1 bundle Age of first use: 27 Date of Last Use: 02/04/18 Cocaine Route: Inhalation Frequency: 1-2 times per week Amount used: 1 gram Age of first use: 27 Date of Last Use: 02/03/18 etoh Route: Oral Frequency: Daily Amount used: 1 pint Age of first use: 27 Date of Last Use: 08/06/18 Family Disease History - Family Disease History Family Disease History: Other: Mother (HTN-) Admission Physical Exam [facility] - Vital Signs Vital Signs: Vital Signs - 24 hr 02/05/18 18:24 Temperature 99.4 F Pulse Rate 98 H Respiratory 20 Rate Blood Pressure 115/62 - Physical General Appearance: Yes: Mild Distress, Obese, Sweating, Anxious HEENTM: Yes: EOMI, Hearing grossly Normal, Normal ENT Inspection, Normocephalic , Normal Voice, RAFI, Pharynx Normal, Tm's normal Respiratory: Yes: Chest Non-Tender, Lungs Clear, Normal Breath Sounds, Wheezing Neck: Yes: Within Normal Limits Breast: Yes: Breast Exam Deferred Cardiology: Yes: Regular Rhythm, Regular Rate, Murmur Abdominal: Yes: Normal Bowel Sounds, Non Tender, Soft, Protuberent Genitourinary: Yes: Within Normal Limits Back: Yes: Normal Inspection Musculoskeletal: Yes: full range of Motion, Gait Steady, Pelvis Stable Extremities: Yes: Normal Capillary Refill, Normal Inspection, Normal Range of Motion, Non-Tender 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 NML intact, Fully Oriented, Alert, Motor Strength 5/5, Depressed Affect Integumentary: Yes: Normal Color, Warm, Diaphoresis Lymphatic: Yes: Within Normal Limits - Diagnostic (1) Alcohol dependence with uncomplicated withdrawal Current Visit: Yes Status: Acute (2) Cocaine dependence, uncomplicated Current Visit: Yes Status: Acute (3) Nicotine dependence Current Visit: Yes Status: Acute Qualifiers: Nicotine product type: cigarettes Substance use status: uncomplicated Qualified Code(s): F17.210 - Nicotine dependence, cigarettes, uncomplicated (4) PCP dependence Current Visit: Yes Status: Acute (5) COPD (chronic obstructive pulmonary disease) Current Visit: Yes Status: Chronic Qualifiers: COPD type: unspecified COPD Qualified Code(s): J44.9 - Chronic obstructive pulmonary disease, unspecified (6) Anemia Current Visit: Yes Status: Chronic Qualifiers: Iron deficiency anemia type: unspecified iron deficiency Cleared for Admission [facility] - Detox or Rehab [facility] Level of Care: Medically Managed Detox Regimen/Protocol: Librium [facility] Breath Alcohol Content Breath Alcohol Content: 0.032 Urine Pregancy Test - Result Urine Test Results: Negative- NO Line Present Urine Drug Screen - Results Urine Drug Screen Results: THC-Marijuana, RUDY-Cocaine, PCP-Phencyclidine, TCA- Tricyclic Antidepress
[2018-02-05] MEDS ORDERED: ALBUTEROL SO4 8 GM HFA INHALER IH PRN (21:13)
[2018-02-05] MEDS ORDERED: diphenhydrAMINE HCL 25 MG CAPSULE (FP) PO PRN (21:15)
[2018-02-05] MEDS ORDERED: LOPERAMIDE HCL 2 MG CAPSULE PO PRN (21:18)
[2018-02-05] MEDS ORDERED: NICOTINE POLACRILEX 2 MG GUM BC PRN (21:18)
[2018-02-05] MEDS ORDERED: P-EPHED 60MG/TRIPROLIDI 2.5MG TABLET PO PRN (21:18)
[2018-02-05] MEDS ORDERED: chlordiazePOXIDE HCL 25 MG CAPSULE PO ONE (21:18)
[2018-02-05] MEDS ORDERED: hydrOXYzine PAMOATE 50 MG CAPSULE (FP) PO PRN (21:18)
[2018-02-05] MEDS ORDERED: MAG HYDROX/AL HYDROX/SIMETH 30 ML UNIT-DOSE CUP PO PRN (21:18)
[2018-02-05] MEDS ORDERED: guaiFENesin/D-METHORPHAN HB 10 ML UNIT-DOSE CUPS PO PRN (21:18)
[2018-02-05] MEDS ORDERED: ACETAMINOPHEN 325 MG TABLET (FP) PO PRN (21:18)
[2018-02-05] MEDS ORDERED: chlordiazePOXIDE HCL 25 MG CAPSULE PO PRN (21:18)
[2018-02-05] MEDS ORDERED: IBUPROFEN 400 MG TABLET (FP) PO PRN (21:18)
[2018-02-05] MEDS ORDERED: MAGNESIUM HYDROX 2400MG/30ML ORAL SUSPENSION 30 ML CUP PO PRN (21:18)
[2018-02-05] MEDS ORDERED: MENTHOL/PHENOL 1 EACH UD MM PRN (21:18)
[2018-02-05] MEDS ORDERED: MAGNESIUM CITRATE 300 ML BOTTLE PO PRN (21:18)
[2018-02-05] MEDS ORDERED: ALBUTEROL SO4 2.5/IPRATROPIUM 0.5 INH SOL 3 ML VIAL.NEB. NEB PRN (21:25)
[2018-02-05] MEDS: PATIENT'S OWN MEDICATION (NON-FORMULARY) (Mometasone/Formoterol [Dulera 100 Mcg/5 Mcg Inha IH SCH (22:22)
[2018-02-05] MEDS: THIAMINE HCL 100 MG TABLET (FP) PO SCH (22:58)
[2018-02-05] MEDS: MONTELUKAST NA 10 MG TABLET PO SCH (22:59)
[2018-02-05] MEDS: chlordiazePOXIDE HCL 25 MG CAPSULE PO SCH (23:00)
[2018-02-05] MEDS: IBUPROFEN 400 MG TABLET (FP) PO PRN (23:05)
[2018-02-06 01:57] LABS: URINE APPEARANCE CLEAR; URINE BILIRUBIN NEGATIVE (<2.0 mg/dL); URINE COLOR YELLOW; URINE GLUCOSE (UA) NEGATIVE (NEGATIVE); URINE KETONE NEGATIVE (NEGATIVE); URINE LEUK ESTERASE NEGATIVE (NEGATIVE); URINE NITRITE NEGATIVE (NEGATIVE); URINE PROTEIN NEGATIVE (NEGATIVE)
[2018-02-06] MEDS: chlordiazePOXIDE HCL 25 MG CAPSULE PO SCH ×4 (06:40→22:40)
[2018-02-06] MEDS: PRENATAL VITAMINS W/ FOLIC ACID TABLET (FP) PO SCH (10:25)
[2018-02-06 11:00] LABS: HEMATOCRIT 27.8 % (32.4-45.2); HEMOGLOBIN 8.8 GM/dL (10.7-15.3); MCH 25.1 pg (25.7-33.7); MCHC 31.6 g/dl (32.0-36.0); MEAN CELL VOLUME 79.3 fl (80-96); MEAN PLT VOLUME 8.2 fl (7.5-11.1); PLATELET COUNT 260 K/MM3 (134-434); RBC 3.51 M/mm3 (3.60-5.2); RDW 17.1 % (11.6-15.6); WHITE BLOOD COUNT 8.3 K/mm3 (4.0-10.0)
[2018-02-06 11:19] LABS: CHLORIDE 106 mmol/L (98-107); POTASSIUM 3.7 mmol/L (3.5-5.1); SODIUM 141 mmol/L (136-145)
[2018-02-06 11:30] LABS: ALBUMIN 3.2 g/dl (3.4-5.0); ALK PHOS 53 U/L (45-117); ANION GAP 8 (8-16); BILIRUBIN,TOTAL 0.1 mg/dL (0.2-1.0); BLOOD UREA NITROGEN 11 mg/dL (7-18); CALCIUM 8.3 mg/dL (8.5-10.1); CO2 27 mmol/L (21-32); CREATININE 0.7 mg/dL (0.55-1.02); GLUCOSE,RANDOM 73 mg/dL (74-106); SGOT/AST 11 U/L (15-37); SGPT/ALT 17 U/L (12-78)
[2018-02-06] MEDS: PATIENT'S OWN MEDICATION (NON-FORMULARY) (Mometasone/Formoterol [Dulera 100 Mcg/5 Mcg Inha IH SCH ×2 (13:04→22:41)
--- NOTE | 2018-02-06 16:21 | PN ---
[facility] CIWA - CIWA Score Nausea/Vomitin Muscle Tremors: 3 Anxiety: 3 Agitation: 2 Paroxysmal Sweats: 1-Minimal Palms Moist Orientation: 0-Oriented Tacttile Disturbances: 1-Very Mild Itch/Numbness Auditory Disturbances: 1-Very Mild Visual Disturbances: 0-None Headache: 2-Mild CIWA-Ar Total Score: 16 S Progress Note (SOAP) Subjective: alert,irritable,anxious,interrupted sleep,tremor Objective: 02/06/18 16:17 Vital Signs Temperature 98.5 F 02/06/18 13:31 Pulse Rate 81 02/06/18 13:31 Respiratory Rate 18 02/06/18 13:31 Blood Pressure 114/58 02/06/18 13:31 O2 Sat by Pulse Oximetry (%) ekg sinus bradycardia 58/min qt/qtc 382/374 Laboratory Last Values WBC 8.3 K/mm3 (4.0-10.0) 02/06/18 07:00 RBC 3.51 M/mm3 (3.60-5.2) L 02/06/18 07:00 Hgb 8.8 GM/dL (10.7-15.3) L 02/06/18 07:00 Hct 27.8 % (32.4-45.2) L D 02/06/18 07:00 MCV 79.3 fl (80-96) L 02/06/18 07:00 MCH 25.1 pg (25.7-33.7) L 02/06/18 07:00 MCHC 31.6 g/dl (32.0-36.0) L 02/06/18 07:00 RDW 17.1 % (11.6-15.6) H 02/06/18 07:00 Plt Count 260 K/MM3 (134-434) 02/06/18 07:00 MPV 8.2 fl (7.5-11.1) D 02/06/18 07:00 Sodium 141 mmol/L (136-145) 02/06/18 07:00 Potassium 3.7 mmol/L (3.5-5.1) 02/06/18 07:00 Chloride 106 mmol/L (98-107) 02/06/18 07:00 Carbon Dioxide 27 mmol/L (21-32) 02/06/18 07:00 Anion Gap 8 (8-16) 02/06/18 07:00 BUN 11 mg/dL (7-18) 02/06/18 07:00 Creatinine 0.7 mg/dL (0.55-1.02) 02/06/18 07:00 Creat Clearance w eGFR > 60 (>60) 02/06/18 07:00 Random Glucose 73 mg/dL (74-106) L 02/06/18 07:00 Calcium 8.3 mg/dL (8.5-10.1) L 02/06/18 07:00 Total Bilirubin 0.1 mg/dL (0.2-1.0) L 02/06/18 07:00 AST 11 U/L (15-37) L 02/06/18 07:00 ALT 17 U/L (12-78) 02/06/18 07:00 Alkaline Phosphatase 53 U/L (45-117) 02/06/18 07:00 Total Protein 6.0 g/dl (6.4-8.2) L 02/06/18 07:00 Albumin 3.2 g/dl (3.4-5.0) L 02/06/18 07:00 Urine Color Yellow 02/05/18 23:32 Urine Appearance Clear 02/05/18 23:32 Urine pH 5.0 (5.0-8.0) 02/05/18 23:32 Ur Specific [place] 1.028 (1.001-1.035) 02/05/18 23:32 Urine Protein Negative (NEGATIVE) 02/05/18 23:32 Urine Glucose (UA) Negative (NEGATIVE) 02/05/18 23:32 Urine Ketones Negative (NEGATIVE) 02/05/18 23:32 Urine Blood Negative (NEGATIVE) 02/05/18 23:32 Urine Nitrite Negative (NEGATIVE) 02/05/18 23:32 Urine Bilirubin Negative (<2.0 mg/dL) 02/05/18 23:32 Urine Urobilinogen 2.0 mg/dL (0.2-1.0) H 02/05/18 23:32 Ur Leukocyte Esterase Negative (NEGATIVE) 02/05/18 23:32 RPR Titer Nonreactive (NONREACTIVE) 02/06/18 07:00 HIV 1&2 Antibody Screen Negative 02/06/18 07:00 HIV P24 Antigen Negative 02/06/18 07:00 Assessment: 02/06/18 16:22 withdrawal symptom Plan: continue detox
--- NOTE | 2018-02-06 16:29 | EKG ---
Test Reason : Blood Pressure : / mmHG Vent. Rate : 058 BPM Atrial Rate : 058 BPM P-R Int : 168 ms QRS Dur : 056 ms QT Int : 382 ms P-R-T Axes : 064 054 044 degrees QTc Int : 374 ms SINUS BRADYCARDIA OTHERWISE NORMAL ECG WHEN COMPARED WITH ECG OF 10-AUG-2016 18:54, VENT. RATE HAS DECREASED BY 36 BPM QT HAS SHORTENED Confirmed by Lito Joshi MD ([id number]) on 02/06/2018 4:28:56 PM Referred By: Confirmed By:Lito Joshi MD
[2018-02-06] MEDS: MONTELUKAST NA 10 MG TABLET PO SCH (22:41)
[2018-02-06] MEDS: THIAMINE HCL 100 MG TABLET (FP) PO SCH (22:41)
[2018-02-07] MEDS: chlordiazePOXIDE HCL 25 MG CAPSULE PO SCH ×3 (06:00→17:13)
[2018-02-07] MEDS: PRENATAL VITAMINS W/ FOLIC ACID TABLET (FP) PO SCH (11:08)
[2018-02-07] MEDS: PATIENT'S OWN MEDICATION (NON-FORMULARY) (Mometasone/Formoterol [Dulera 100 Mcg/5 Mcg Inha IH SCH ×2 (11:08→22:33)
--- NOTE | 2018-02-07 14:41 | PN ---
S CIWA - CIWA Score Nausea/Vomitin Muscle Tremors: 3 Anxiety: 2 Agitation: 2 Paroxysmal Sweats: 1-Minimal Palms Moist Orientation: 0-Oriented Tacttile Disturbances: 1-Very Mild Itch/Numbness Auditory Disturbances: 1-Very Mild Visual Disturbances: 0-None Headache: 1-Very Mild CIWA-Ar Total Score: 14 BHS Progress Note (SOAP) Subjective: alert,irritable,anxious,interrupted sleep, Objective: 02/07/18 14:38 Vital Signs Temperature 97.9 F 02/07/18 09:39 Pulse Rate 76 02/07/18 09:39 Respiratory Rate 18 02/07/18 09:39 Blood Pressure 110/74 02/07/18 09:39 O2 Sat by Pulse Oximetry (%) Assessment: 02/07/18 14:38 withdrawal symptom Plan: continue detox,stable for discharge in am,patient has history of anemia and asthma has all medications at home, will follow up with out patient program and primary care provider for medical problem
[2018-02-07] MEDS: IBUPROFEN 400 MG TABLET (FP) PO PRN (17:15)
[2018-02-07] MEDS: chlordiazePOXIDE 5 MG CAPSULE PO SCH (22:32)
[2018-02-07] MEDS: THIAMINE HCL 100 MG TABLET (FP) PO SCH (22:34)
[2018-02-07] MEDS: MONTELUKAST NA 10 MG TABLET PO SCH (22:34)
[2018-02-07 22:38] VITALS: BP 139/87; PULSE 71; TEMP 98.2
[2018-02-08] MEDS: chlordiazePOXIDE 5 MG CAPSULE PO SCH (05:48)
--- NOTE | 2018-02-08 08:07 | PN ---
S Progress Note (SOAP) Subjective: alert,no complaint Objective: 02/08/18 08:05 Vital Signs Temperature 98.2 F 02/07/18 22:37 Pulse Rate 71 02/07/18 22:37 Respiratory Rate 16 02/08/18 03:30 Blood Pressure 139/87 02/07/18 22:37 O2 Sat by Pulse Oximetry (%) Assessment: 02/08/18 08:05 patient is stale for discharge today Plan: discharge today,follow up with after care program as arrangement and primary care provider for mecial problem,patient has all medication at home
--- NOTE | 2018-02-08 08:13 | DS ---
[facility] Detox Discharge Summary Admission Date: 02/05/18 Discharge Date: 02/08/18 - History Present History: Alcohol Dependence, Cocaine Dependence Additional Comments: follow up with after care program as arrangement and primary care provider for medical problem,patient has all medications at home Pertinent Past History: nicotine dependence pcp copd anemia - Physical Exam Results Vital Signs: Vital Signs Temperature 98.2 F 02/07/18 22:37 Pulse Rate 71 02/07/18 22:37 Respiratory Rate 16 02/08/18 03:30 Blood Pressure 139/87 02/07/18 22:37 O2 Sat by Pulse Oximetry (%) Pertinent Admission Physical Exam Findings: withdrawal signs and symptom Vital Signs Temperature 98.2 F 02/07/18 22:37 Pulse Rate 71 02/07/18 22:37 Respiratory Rate 16 02/08/18 03:30 Blood Pressure 139/87 02/07/18 22:37 O2 Sat by Pulse Oximetry (%) Laboratory Last Values WBC 8.3 K/mm3 (4.0-10.0) 02/06/18 07:00 RBC 3.51 M/mm3 (3.60-5.2) L 02/06/18 07:00 Hgb 8.8 GM/dL (10.7-15.3) L 02/06/18 07:00 Hct 27.8 % (32.4-45.2) L D 02/06/18 07:00 MCV 79.3 fl (80-96) L 02/06/18 07:00 MCH 25.1 pg (25.7-33.7) L 02/06/18 07:00 MCHC 31.6 g/dl (32.0-36.0) L 02/06/18 07:00 RDW 17.1 % (11.6-15.6) H 02/06/18 07:00 Plt Count 260 K/MM3 (134-434) 02/06/18 07:00 MPV 8.2 fl (7.5-11.1) D 02/06/18 07:00 Sodium 141 mmol/L (136-145) 02/06/18 07:00 Potassium 3.7 mmol/L (3.5-5.1) 02/06/18 07:00 Chloride 106 mmol/L (98-107) 02/06/18 07:00 Carbon Dioxide 27 mmol/L (21-32) 02/06/18 07:00 Anion Gap 8 (8-16) 02/06/18 07:00 BUN 11 mg/dL (7-18) 02/06/18 07:00 Creatinine 0.7 mg/dL (0.55-1.02) 02/06/18 07:00 Creat Clearance w eGFR > 60 (>60) 02/06/18 07:00 Random Glucose 73 mg/dL (74-106) L 02/06/18 07:00 Calcium 8.3 mg/dL (8.5-10.1) L 02/06/18 07:00 Total Bilirubin 0.1 mg/dL (0.2-1.0) L 02/06/18 07:00 AST 11 U/L (15-37) L 02/06/18 07:00 ALT 17 U/L (12-78) 02/06/18 07:00 Alkaline Phosphatase 53 U/L (45-117) 02/06/18 07:00 Total Protein 6.0 g/dl (6.4-8.2) L 02/06/18 07:00 Albumin 3.2 g/dl (3.4-5.0) L 02/06/18 07:00 Urine Color Yellow 02/05/18 23:32 Urine Appearance Clear 02/05/18 23:32 Urine pH 5.0 (5.0-8.0) 02/05/18 23:32 Ur Specific [place] 1.028 (1.001-1.035) 02/05/18 23:32 Urine Protein Negative (NEGATIVE) 02/05/18 23:32 Urine Glucose (UA) Negative (NEGATIVE) 02/05/18 23:32 Urine Ketones Negative (NEGATIVE) 02/05/18 23:32 Urine Blood Negative (NEGATIVE) 02/05/18 23:32 Urine Nitrite Negative (NEGATIVE) 02/05/18 23:32 Urine Bilirubin Negative (<2.0 mg/dL) 02/05/18 23:32 Urine Urobilinogen 2.0 mg/dL (0.2-1.0) H 02/05/18 23:32 Ur Leukocyte Esterase Negative (NEGATIVE) 02/05/18 23:32 RPR Titer Nonreactive (NONREACTIVE) 02/06/18 07:00 HIV 1&2 Antibody Screen Negative 02/06/18 07:00 HIV P24 Antigen Negative 02/06/18 07:00 - Treatment Hospital Course: Detox Protocol Followed, Detoxed Safely, Responded well, Discharged Condition Good - Medication Discharge Medications: Ambulatory Orders Albuterol Sulfate Inhaler - [Ventolin Hfa *Inhaler*] 2 inh IH Q4H PRN 08/27/12 Montelukast Na [Singulair] 10 mg PO HS 08/27/12 Gabapentin [Neurontin] 300 mg PO TID 06/14/13 Buspirone HCl [Buspar -] 10 mg PO BID 08/10/16 Ibuprofen [Motrin -] 400 mg PO BID PRN 08/10/16 Mometasone/Formoterol [Dulera 100 Mcg/5 Mcg Inhaler] 2 puff IH BID 02/05/18 Olanzapine 10 mg PO HS 02/05/18 - Diagnosis (1) Alcohol dependence with uncomplicated withdrawal Status: Acute (2) Cocaine dependence, uncomplicated Status: Acute (3) Nicotine dependence Status: Acute Qualifiers: Nicotine product type: cigarettes Substance use status: uncomplicated Qualified Code(s): F17.210 - Nicotine dependence, cigarettes, uncomplicated (4) PCP dependence Status: Acute (5) Anemia Status: Chronic Qualifiers: Iron deficiency anemia type: unspecified iron deficiency (6) COPD (chronic obstructive pulmonary disease) Status: Chronic Qualifiers: COPD type: unspecified COPD Qualified Code(s): J44.9 - Chronic obstructive pulmonary disease, unspecified - AMA Did Patient Leave Against Medical Advice: No
[2018-02-08] MEDS ORDERED: chlordiazePOXIDE HCL 10 MG CAPSULE PO SCH (23:00)
== END 2018-02-08 06:26 | disposition home or self-care (01) | DRG 774 ==
LOC: YASAS 16:58 → Y6N 22:10
PROVIDERS: ADMIT Surgery; ATTEND Surgery
PROC: HZ2ZZZZ Detoxification Services for Substance Abuse Treatment (ICD-10-PCS; principal; 2018-02-05)
DX: F10.230 Alcohol dependence with withdrawal, uncomplicated (principal); F14.20 Cocaine dependence, uncomplicated; F16.20 Hallucinogen dependence, uncomplicated; F17.210 Nicotine dependence, cigarettes, uncomplicated; D50.9 Iron deficiency anemia, unspecified; J44.9 Chronic obstructive pulmonary disease, unspecified; R00.1 Bradycardia, unspecified; R01.1 Cardiac murmur, unspecified; E66.9 Obesity, unspecified; Z68.34 Body mass index [BMI] 34.0-34.9, adult; Z91.013 Allergy to seafood; Z88.8 Allergy status to other drugs, medicaments and biological substances; Z91.018 Allergy to other foods; Z86.69 Personal history of other diseases of the nervous system and sense organs
CPT/HCPCS: 36415; 80053; 81003; 85027; 86593; 87389; 93005; 93010